=== PATIENT | male | born 1970 | race Two or more races ===

== ENCOUNTER 2017-06-18 01:11 | Emergency (ER) | payer SELFPAY ==
[~2017-06-18] VITALS: Ht 172.7 cm; Wt 81.6 kg
[2017-06-18 01:34] VITALS: BP 124/80
== END 2017-06-18 05:30 | disposition left against medical advice (07) ==
LOC: ER 01:11
DX: R10.9 Unspecified abdominal pain (principal); Z53.21 Procedure and treatment not carried out due to patient leaving prior to being seen by health care provider

== ENCOUNTER 2020-12-08 12:23 | Inpatient (IN) | payer MEDICAID, OTHER ==
[~2020-12-08] VITALS: Ht 177.8 cm; Wt 77.2 kg
[2020-12-08 13:42] LABS: Basophils # (auto) 0 10 ^3/uL (0-0.2); Basophils % (auto) 0.8 % (0.0-2.0); Eosinophils # (auto) 0.1 10 ^3/uL (0-0.8); Eosinophils % (auto) 1.5 % (0.0-7.0); Hematocrit 41.3 % (41.0-53.0); Hemoglobin 13.3 g/dL (13.5-17.5); Lymphocytes % (auto) 20.3 % (10.0-50.0); Mean Corpuscular Hemoglobin 28.8 pg (28.0-32.0); Mean Corpuscular Hgb Conc. 32.3 g/dL (32.0-36.0); Mean Corpuscular Volume 89.3 fL (80.0-100.0); Monocytes # (auto) 0.4 10 ^3/uL (0-1.3); Monocytes % (auto) 7.4 % (0.0-12.0); Neutrophils # (auto) 3.6 10 ^3/uL (1.6-8.6); Nucleated Red Blood Cells % 0.1 %; Platelet Count (auto) 162 10^3/uL (140-450); Red Blood Cells 4.62 10^6/uL (4.5-5.90); Red Cell Distribution Width 16.4 % (11.8-14.3); White Blood Cell 5.2 10^3/uL (4.4-10.8)
[2020-12-08 14:04] LABS: Albumin 1.9 g/dL (3.4-5.0); BUN/Creatinine Ratio 24.3; Magnesium 1.8 mg/dL (1.6-2.6); Potassium 4.5 mmol/L (3.5-5.1)
[2020-12-08 14:08] LABS: Bilirubin, Total 0.6 mg/dL (0.2-1.0); Total Protein 5.8 g/dL (6.4-8.2)
[2020-12-08 15:10] LABS: Urine Bacteria NONE SEEN /hpf (None Seen); Urine Blood TRACE /uL (Negative); Urine Specific Gravity 1.017 (1.001-1.035); Urine WBC <1 /hpf (0 - 3)
[2020-12-08] MEDS ORDERED: MORPHINE SULFATE 4 MG/ML SYR/VIAL IV ONE (17:30)
[2020-12-08] MEDS ORDERED: ONDANSETRON HCL 4 MG/2 ML VIAL IV ONE (17:30)
[2020-12-08] MEDS ORDERED: ONDANSETRON HCL 4 MG/2 ML VIAL IV PRN (18:00)
[2020-12-08] MEDS ORDERED: MORPHINE SULF INJ 2 MG/ML SYRINGE 1ML IV PRN ×2 (18:00)
[2020-12-08] MEDS ORDERED: FUROSEMIDE 40 MG/4 ML VIAL IV ONE (18:00)
[2020-12-08] MEDS ORDERED: InsuLIN REG 1unit/0.01ml Soln (100units/ml) IV ONE (18:00)
[2020-12-08] MEDS ORDERED: HYDROcodone-ACET 5/325MG TAB PO PRN (18:00)
[2020-12-08] MEDS ORDERED: NITROGLYCERIN 0.4 MG SL TAB SL PRN (18:00)
[2020-12-08 20:15] VITALS: BP 119/79
[2020-12-08 22:00] VITALS: BP 119/79
[2020-12-09 05:00] VITALS: BP 111/76
[2020-12-09 08:30] VITALS: BP 109/71
[2020-12-09] MEDS ORDERED: OPTISON 3ml Vial for INJ IV ONE (09:30)
[2020-12-09] MEDS: FUROSEMIDE 40 MG/4 ML VIAL IV SCH (10:06)
[2020-12-09] MEDS: CARVEDILOL 3.125 MG TAB PO SCH ×2 (10:06→21:59)
[2020-12-09 10:42] LABS: INR 1.03 (0.9-1.15); Partial Thromboplastin Time 25.6 sec (23.0-31.2)
[2020-12-09] MEDS ORDERED: ENOXAPARIN SOD 80 MG/0.8ML SYRINGE SC ONE (11:30)
[2020-12-09 13:30] VITALS: BP 106/70
[2020-12-09 16:30] VITALS: BP 100/69
[2020-12-09] MEDS ORDERED: ATOR40TA52 PO (16:46)
[2020-12-09] MEDS ORDERED: FURO40TA4 PO (16:46)
[2020-12-09] MEDS ORDERED: METF-372 PO (16:46)
[2020-12-09] MEDS ORDERED: CARV6.2551 PO (16:46)
[2020-12-09] MEDS ORDERED: LISI-716 PO (16:46)
[2020-12-09] MEDS ORDERED: INSU1INJ19 SC (17:00)
[2020-12-09] MEDS ORDERED: DEXTROSE (50%) 50ML SYRG IV PRN (17:30)
[2020-12-09] MEDS: ACCU-CHEK COMFORT CURVE STRIP VI SCH (21:49)
[2020-12-09] MEDS: InsuLIN REG 1unit/0.01ml Soln (100units/ml) SC SCH (21:52)
[2020-12-09 22:00] VITALS: BP 104/72
[2020-12-10 05:00] VITALS: BP 101/67
[2020-12-10] MEDS: ACCU-CHEK COMFORT CURVE STRIP VI SCH ×3 (07:00→17:35)
[2020-12-10] MEDS: InsuLIN REG 1unit/0.01ml Soln (100units/ml) SC SCH ×3 (07:00→17:35)
[2020-12-10 08:30] VITALS: BP 101/65
[2020-12-10] MEDS: FUROSEMIDE 40 MG/4 ML VIAL IV SCH (09:57)
[2020-12-10] MEDS ORDERED: IODIXANOL 320MG/ML 100ML BTL IV ONE (11:49)
[2020-12-10] MEDS ORDERED: LIDOCAINE 2%HCL (LOCAL ANESTH.) INJ 20ML MDV ONE (11:49)
[2020-12-10] MEDS ORDERED: ANGIOMAX 250 MG VIAL IV ONE (11:55)
[2020-12-10] MEDS ORDERED: MIDAZOLAM HCL 1MG/1ML-2 ML VIAL ONE (11:55)
[2020-12-10] MEDS ORDERED: fentaNYL CITRATE 100 MCG/2 ML VL ONE (11:55)
[2020-12-10] MEDS ORDERED: SODIUM CHL 0.9% 0 ML ONE (11:55)
[2020-12-10] MEDS ORDERED: VERAPAMIL 2.5MG/ML INJ 2ML VIAL IV ONE (11:56)
[2020-12-10] MEDS ORDERED: HEPARIN SODIUM (PORCINE) 5000 UNITS/ML 1ML VIAL ONE (11:56)
[2020-12-10 12:00] VITALS: BP 99/68
[2020-12-10 17:00] VITALS: BP 105/78
[2020-12-10] MEDS ORDERED: ENAL2.5T7 PO (18:05)
[2020-12-10] MEDS ORDERED: APIX5TAB PO (18:05)
[2020-12-10] MEDS ORDERED: FURO40TA4 PO (18:05)
[2020-12-10] MEDS ORDERED: METO25TA93 PO (18:05)
== END 2020-12-10 19:24 | disposition home health service (06) | DRG 192 ==
LOC: ER 12:23 → EDBD 12:23 → TELE 17:50 → TELE-WESTW 20:11 → ER 20:11 → TELE-WESTW 20:15
PROVIDERS: ADMIT Internal Medicine; ATTEND Internal Medicine
PROC: 4A023N7 Measurement of Cardiac Sampling and Pressure, Left Heart, Percutaneous Approach (ICD-10-PCS; principal; 2020-12-10)
PROC: B211YZZ Fluoroscopy of Multiple Coronary Arteries using Other Contrast (ICD-10-PCS; 2020-12-10)
DX: I13.0 Hypertensive heart and chronic kidney disease with heart failure and stage 1 through stage 4 chronic kidney disease, or unspecified chronic kidney disease (principal); E11.65 Type 2 diabetes mellitus with hyperglycemia; I25.10 Atherosclerotic heart disease of native coronary artery without angina pectoris; I50.23 Acute on chronic systolic (congestive) heart failure; F15.20 Other stimulant dependence, uncomplicated; I50.84 End stage heart failure; Z20.822 Contact with and (suspected) exposure to COVID-19; I34.0 Nonrheumatic mitral (valve) insufficiency; N18.9 Chronic kidney disease, unspecified; E78.5 Hyperlipidemia, unspecified; I70.0 Atherosclerosis of aorta; Z79.899 Other long term (current) drug therapy; I51.3 Intracardiac thrombosis, not elsewhere classified
CPT/HCPCS: 36415; 71045; 76705; 80053; 81001; 82962; 83735; 83880; 84484; 85025; 85610; 85730; 86850; 86900; 86901; 87426; 93005; 93306; 93458; 96374; 96375; 99152; G0378; J1815; J2250; J2405; Q9956; Q9967

== ENCOUNTER 2021-12-24 15:59 | Inpatient (IN) | payer MEDICAID ==
[~2021-12-24] VITALS: Ht 172.7 cm; Wt 70.8 kg
[~2021-12-24 15:59] MED LIST: APIX5TAB PO; ATOR40TA52 PO; ENAL2.5T7 PO; FURO40TA4 PO; INSU1INJ19 SC; METF-372 PO; METO25TA93 PO
[2021-12-24 16:30] VITALS: BP 112/80
[2021-12-24] MEDS ORDERED: FUROSEMIDE 40 MG/4 ML VIAL IV ONE (18:30)
[2021-12-24 18:32] LABS: Basophils # (auto) 0.1 10 ^3/uL (0-0.2); Basophils % (auto) 2.1 % (0.0-2.0); Eosinophils # (auto) 0.1 10 ^3/uL (0-0.8); Eosinophils % (auto) 2.3 % (0.0-7.0); Hematocrit 43.7 % (41.0-53.0); Hemoglobin 14.5 g/dL (13.5-17.5); Lymphocytes # (auto) 0.9 10 ^3/uL (0.4-5.4); Lymphocytes % (auto) 15.7 % (10.0-50.0); Mean Corpuscular Hemoglobin 28.7 pg (28.0-32.0); Mean Corpuscular Hgb Conc. 33.3 g/dL (32.0-36.0); Mean Corpuscular Volume 86.1 fL (80.0-100.0); Monocytes # (auto) 0.3 10 ^3/uL (0-1.3); Monocytes % (auto) 5.5 % (0.0-12.0); Neutrophils # (auto) 4.3 10 ^3/uL (1.6-8.6); Neutrophils % (auto) 74.4 % (37.0-80.0); Nucleated Red Blood Cells % 0.2 %; Red Blood Cells 5.08 10^6/uL (4.5-5.90); Red Cell Distribution Width 16.3 % (11.8-14.3); White Blood Cell 5.7 10^3/uL (4.4-10.8)
[2021-12-24 18:55] LABS: Albumin 2.1 g/dL (3.4-5.0); BUN/Creatinine Ratio 20.2; Calcium 7.7 mg/dL (8.5-10.1); Potassium 4.6 mmol/L (3.5-5.1)
[2021-12-24 18:58] LABS: Bilirubin, Total 0.6 mg/dL (0.2-1.0); Total Protein 5.7 g/dL (6.4-8.2)
[2021-12-24] MEDS ORDERED: hydrALAZINE HCL 10 MG TAB PO PRN (20:30)
[2021-12-24] MEDS ORDERED: ACETAMINOPHEN 325 MG TAB PO PRN (20:30)
[2021-12-24] MEDS ORDERED: HYDROcodone-ACET 5/325MG TAB PO PRN (20:30)
[2021-12-24] MEDS ORDERED: ONDANSETRON HCL 4 MG/2 ML VIAL IV PRN (20:30)
[2021-12-24] MEDS ORDERED: MORPHINE SULFATE INJ 2 MG/ml SYRG IV PRN (20:30)
[2021-12-24] MEDS ORDERED: FAMOTIDINE 20 MG TAB PO SCH (22:00)
[2021-12-24] MEDS ORDERED: FUROSEMIDE 40 MG/4 ML VIAL IV SCH (22:00)
== END 2021-12-25 00:40 | disposition left against medical advice (07) | DRG 194 ==
LOC: ER 15:59 → TELE 20:27
PROVIDERS: ADMIT Nurse Practitioner Family; ATTEND Nurse Practitioner Family
DX: I11.0 Hypertensive heart disease with heart failure (principal); E11.65 Type 2 diabetes mellitus with hyperglycemia; I50.9 Heart failure, unspecified; R79.89 Other specified abnormal findings of blood chemistry; R10.13 Epigastric pain; E78.5 Hyperlipidemia, unspecified; Z79.84 Long term (current) use of oral hypoglycemic drugs; Z79.899 Other long term (current) drug therapy; Z53.21 Procedure and treatment not carried out due to patient leaving prior to being seen by health care provider
CPT/HCPCS: 36415; 74176; 80053; 83690; 83880; 84484; 85025; 93005; G0378

== ENCOUNTER 2022-12-28 21:40 | Emergency (ER) | payer MEDICAID ==
[~2022-12-28] VITALS: Ht 180.3 cm; Wt 82.0 kg
[~2022-12-28 21:40] MED LIST changes: +ENAL1TAB42 PO; -ENAL2.5T7 PO
[2022-12-28 21:46] VITALS: BP 168/89
[2022-12-28 22:19] LABS: Basophils # (auto) 0 10 ^3/uL (0-0.2); Basophils % (auto) 0.8 % (0.0-2.0); Eosinophils # (auto) 0.1 10 ^3/uL (0-0.8); Eosinophils % (auto) 1.4 % (0.0-7.0); Hemoglobin 13.6 g/dL (13.5-17.5); Lymphocytes # (auto) 1.4 10 ^3/uL (0.4-5.4); Lymphocytes % (auto) 34.4 % (10.0-50.0); Mean Corpuscular Hgb Conc. 34.1 g/dL (32.0-36.0); Mean Corpuscular Volume 90.9 fL (80.0-100.0); Monocytes # (auto) 0.3 10 ^3/uL (0-1.3); Monocytes % (auto) 8.2 % (0.0-12.0); Neutrophils # (auto) 2.2 10 ^3/uL (1.6-8.6); Neutrophils % (auto) 55.2 % (37.0-80.0); Nucleated Red Blood Cells % 0.1 %; Red Blood Cells 4.41 10^6/uL (4.5-5.90); Red Cell Distribution Width 13.4 % (11.8-14.3)
[2022-12-28 22:43] LABS: Albumin 3.4 g/dL (3.4-5.0); BUN/Creatinine Ratio 15.6 (10.0-20.0); Calcium 9.2 mg/dL (8.5-10.1); Potassium 3.8 mmol/L (3.5-5.1)
[2022-12-28] MEDS ORDERED: ASPirin 81 mg TAB PO ONE (22:45)
[2022-12-28 22:46] LABS: Bilirubin, Total 0.4 mg/dL (0.2-1.0)
== END 2022-12-28 23:34 | disposition left against medical advice (07) ==
LOC: ER 21:40 → EDBD 21:40 → ER 23:34
DX: R07.89 Other chest pain (principal); R11.2 Nausea with vomiting, unspecified; R51.9 Headache, unspecified; R61 Generalized hyperhidrosis; R55 Syncope and collapse; E11.9 Type 2 diabetes mellitus without complications; I11.0 Hypertensive heart disease with heart failure; I50.9 Heart failure, unspecified; I25.2 Old myocardial infarction; F15.10 Other stimulant abuse, uncomplicated
CPT/HCPCS: 36415; 71045; 80053; 83880; 84484; 85025; 93005